=== PATIENT | male | born 1955 | race Two or more races ===

== ENCOUNTER 2024-03-20 11:45 | Inpatient (IN) | payer OTHER ==
[~2024-03-20] VITALS: Ht 177.8 cm; Wt 67.6 kg
[2024-03-20 12:38] LABS: URINE APPEARANCE Clear; URINE BILIRRUBIN Negative (NEGATIVE); URINE BLOOD Negative; URINE COLOR Yellow; URINE GLUCOSE Negative (NEGATIVE); URINE KETONE Trace (NEGATIVE); URINE LEUKOCYTE Negative; URINE NITRATE Negative; URINE PROTEIN Negative (NEGATIVE); URINE UROBILINOGEN 0.2 E.U./dl
[2024-03-20 12:39] LABS: URINE BACTERIA 6.2 uL (0.0-1933); URINE EPITHELIAL CELLS 2.1 uL (0.0-38.8); URINE WBC 3.7 uL (0.0-23.2)
[2024-03-20 12:52] VITALS: BP 130/80
[2024-03-20 12:53] VITALS: BP 123/69
[2024-03-20 13:00] LABS: INR 1.05; PARTIAL THROMBOPLASTIN TIME 30.1 SECONDS (22.0-34.0); PROTHROMBIN TIME 11.4 SECONDS (9.0-11.5)
[2024-03-20 13:16] LABS: HEMATOCRIT 46.4 % (39.0-48.0); HEMOGLOBIN 15.9 g/dL (13-16.00); MEAN CELL VOLUME 93.7 fL (80.0-100.00); MEAN CORPUSCULAR HEMOGLOBIN 32.2 pg (27.00-32.0); MEAN CORPUSCULAR HGB CONC 34.3 g/dl (32.0-36.0); PLATELET COUNT 210 K/uL (150-450); RED BLOOD COUNT 4.95 M/uL (4.00-6.00)
[2024-03-20 13:19] LABS: URINE CAST 0.15 uL (0.0-1.40)
[2024-03-20 13:32] LABS: CALCIUM 9.9 mg/dL (8.5-10.1); CREATININE SERUM 0.88 mg/dL (0.70-1.30); GFR 86.38; POTASSIUM 4.16 mEq/L (3.5-5.1)
[2024-03-31] MEDS ORDERED: ENOXAPARIN SODIUM 40 MG/0.4 ML SYRINGE SUBCUTANEO ONE (08:45)
[2024-03-31] MEDS ORDERED: CEFAZOLIN SODIUM 1,000 MG in 0.9 % SODIUM CHLORIDE 50 ML IV ONE (08:45)
[2024-03-31] MEDS ORDERED: MANNITOL 0.2 GM/ML (500ML) IV.SOLN IV NR (10:00)
[2024-03-31] MEDS ORDERED: HEMOSTATIC MATRIX 1 KIT KIT TOP ONE (11:15)
[2024-03-31] MEDS ORDERED: DEXTROSE 5 %-0.45 % SOD CHLORD 1,000 ML IV SCH (12:08)
[2024-03-31] MEDS ORDERED: MORPHINE SULFATE 4 MG/ML CARTRIDGE IV PRN (12:15)
[2024-03-31] MEDS ORDERED: ONDANSETRON HCL 2 MG/ML VIAL IV PRN (12:15)
[2024-03-31] MEDS ORDERED: SIMETHICONE 125 MG CAPSULE PO SCH (13:00)
[2024-03-31] MEDS ORDERED: MORPHINE SULFATE 4 MG/ML VIAL IV ONE ×2 (13:10→14:00)
[2024-03-31] MEDS ORDERED: ONDANSETRON HCL 2 MG/ML VIAL ONE (13:39)
[2024-03-31] MEDS ORDERED: CEFAZOLIN SODIUM 1,000 MG VIAL ONE (16:24)
[2024-03-31] MEDS ORDERED: CEFAZOLIN SODIUM 1,000 MG VIAL IV SCH (17:00)
[2024-03-31] MEDS ORDERED: FAMOtidine 20 MG TABLET PO SCH (17:00)
[2024-03-31] MEDS ORDERED: DOCUSATE SODIUM 100MG CAP PO SCH (17:00)
[2024-03-31 17:12] VITALS: BP 123/69; O2SAT 95
[2024-04-01 00:13] VITALS: BP 117/69; O2SAT 98
[2024-04-01 08:00] VITALS: BP 120/56; O2SAT 97
[2024-04-01 08:18] LABS: HEMOGLOBIN 14.3 g/dL (13-16.00); MEAN CELL VOLUME 95.3 fL (80.0-100.00); MEAN CORPUSCULAR HEMOGLOBIN 32.5 pg (27.00-32.0); MEAN CORPUSCULAR HGB CONC 34.1 g/dl (32.0-36.0); PLATELET COUNT 155 K/uL (150-450); RED CELL DISTRIBUTION WIDTH 12.7 % (11.5-14.5)
[2024-04-01 08:26] LABS: CALCIUM 8.6 mg/dL (8.5-10.1); CREATININE SERUM 0.95 mg/dL (0.70-1.30); GFR 79.07; POTASSIUM 4.79 mEq/L (3.5-5.1)
[2024-04-01] MEDS ORDERED: ENOXAPARIN SODIUM 40 MG/0.4 ML SYRINGE SUBCUTANEO SCH (09:00)
[2024-04-01 18:14] VITALS: BP 122/59; O2SAT 97
[2024-04-01] MEDS ORDERED: TAMSULOSIN HCL 0.4 MG CAP PO SCH (21:00)
[2024-04-02 00:17] VITALS: BP 124/61; O2SAT 98
[2024-04-02 08:00] VITALS: BP 130/70; O2SAT 96
[2024-04-02 23:51] VITALS: BP 122/57; O2SAT 98
[2024-04-03 07:54] VITALS: BP 125/59; O2SAT 98
[2024-04-03] MEDS ORDERED: AMINOCAPROIC ACID 250 MG/ML VIAL IV STA (14:05)
[2024-04-03 17:56] VITALS: BP 124/87; O2SAT 98
[2024-04-03] MEDS ORDERED: AMINOCAPROIC ACID 20 MG/ML ML IV SCH (21:00)
[2024-04-04 00:33] VITALS: BP 133/64; O2SAT 97
[2024-04-04 07:02] LABS: HEMATOCRIT 31.7 % (39.0-48.0); HEMOGLOBIN 11.2 g/dL (13-16.00); MEAN CORPUSCULAR HEMOGLOBIN 32.7 pg (27.00-32.0); MEAN CORPUSCULAR HGB CONC 35.3 g/dl (32.0-36.0); PLATELET COUNT 171 K/uL (150-450); RED BLOOD COUNT 3.42 M/uL (4.00-6.00); RED CELL DISTRIBUTION WIDTH 12.6 % (11.5-14.5)
[2024-04-04 07:03] LABS: MEAN CELL VOLUME 92.6 fL (80.0-100.00)
[2024-04-04 07:14] LABS: CALCIUM 8.5 mg/dL (8.5-10.1); CREATININE SERUM 0.85 mg/dL (0.70-1.30); GFR 89.9; POTASSIUM 3.83 mEq/L (3.5-5.1)
[2024-04-04 08:05] VITALS: BP 128/71; O2SAT 99
== END 2024-04-04 12:14 | disposition home or self-care (01) | DRG 658 ==
LOC: SURG 03-24 07:00 → O/R 03-31 05:25 → SURG 03-31 14:00
PROVIDERS: ADMIT Urology; ATTEND Urology
PROC: 0TB00ZZ Excision of Right Kidney, Open Approach (ICD-10-PCS; principal; 2024-04-01)
DX: C64.1 Malignant neoplasm of right kidney, except renal pelvis (principal)